=== PATIENT | male | born 1985 | race African-American/Black ===

== ENCOUNTER 2024-04-27 02:44 | Inpatient (IN) | payer SELFPAY ==
[~2024-04-27] VITALS: Ht 167.6 cm; Wt 83.5 kg
[2024-04-27 03:34] LABS: CHLORIDE 105 mEq/L (98-107); POTASSIUM 3.6 mEq/L (3.5-5.1); SODIUM 138 mEq/L (136-145)
[2024-04-27 03:35] LABS: CALCIUM 10.2 mg/dL (8.7-10.4); CARBON DIOXIDE 27 mEq/L (21-32)
[2024-04-27 03:38] LABS: BASOPHILS % 0.5 % (0.0-2.0); DIFFERENTIAL COMMENT 0; EOSINOPHILS % 1.4 % (0.0-5.0); HEMATOCRIT. 50.1 % (42.0-52.0); HEMOGLOBIN. 17.7 g/dL (14.0-18.0); LYMPHOCYTES % 30.3 % (20.0-50.0); MEAN CORPUSCULAR HEMOGLOBIN 33.7 pg (28.0-32.0); MEAN CORPUSCULAR HGB CONC 35.4 g/dL (31.0-37.0); MEAN CORPUSCULAR VOLUME 95.2 fL (80.0-94.0); MEAN PLATELET VOLUME 8.7 fl (7.4-10.4); MONOCYTES % 7.7 % (2.0-8.0); NEUTROPHILS % 60.1 % (40.0-76.0); PLATELET 231 x1000/uL (130-400); RED BLOOD CELL COUNT 5.26 mill/uL (4.7-6.1); RED CELL DISTRIBUTION WIDTH 12.8 % (11.6-14.6); WHITE BLOOD COUNT 13.6 x1000/uL (4.5-11.0)
[2024-04-27 03:40] LABS: CREATININE 1.3 mg/dL (0.6-1.3); GLUCOSE 115 mg/dL (70-105); UREA NITROGEN BLOOD 12 mg/dL (9-23)
[2024-04-27 03:41] LABS: TROPONIN I HIGH SENSITIVITY 41 ng/L (3.0-53)
[2024-04-27] MEDS: SODIUM CHLORIDE 0.9% 1,000 ML IV ONE (03:53)
[2024-04-27 04:51] LABS: PROTHROMBIN TIME 10.9 sec (9.6-11.0)
[2024-04-27 04:53] LABS: ETHANOL BLOOD < 10 mg/dL (<10)
[2024-04-27] MEDS: IOHEXOL-350 100 ML BOTTLE ONE (07:07)
[2024-04-27] MEDS ORDERED: MAGNESIUM/ALUMINUM HYDROXIDE/SIMETHICONE 30ML UDC PO PRN (07:15)
[2024-04-27] MEDS ORDERED: ONDANSETRON HCL 4MG/2ML INJ IV PRN (07:15)
[2024-04-27] MEDS ORDERED: DOCUSATE SODIUM 100MG CAPSULE PO PRN (07:15)
[2024-04-27] MEDS ORDERED: ACETAMINOPHEN 325MG TABLET PO PRN ×2 (07:15)
[2024-04-27] MEDS ORDERED: IPRATROPIUM/ALBUTEROL 0.5-3(2.5)MG/3ML NEB HHN PRN (07:15)
[2024-04-27] MEDS ORDERED: GUAIFENESIN 200MG/10ML SUGAR FREE UDC PO PRN (07:15)
[2024-04-27 07:40] LABS: PHOSPHORUS 3.4 mg/dL (2.5-4.9)
[2024-04-27 17:14] LABS: CREATINE KINASE MB FRACTION 14.4 ng/mL (0.5-3.6)
[2024-04-27] MEDS: CARVEDILOL 3.125 MG TABLET PO NR (17:45)
[2024-04-27] MEDS: ENOXAPARIN 40MG/0.4ML SYR SUBCUT SCH (18:07)
[2024-04-27] MEDS: CARVEDILOL 3.125 MG TABLET PO SCH (22:53)
[2024-04-27 23:13] VITALS: BP 137/95; PULSE 56; RESP 15; TEMP 36.7516
[2024-04-27 23:55] LABS: CREATINE KINASE MB FRACTION 12.1 ng/mL (0.5-3.6)
[2024-04-28] VITALS: BP 129/86; PULSE 49; RESP 17; TEMP 36.83628; O2SAT 96
[2024-04-28 04:00] VITALS: BP 129/88; PULSE 49; RESP 14; TEMP 36.78072; O2SAT 96
[2024-04-28 07:20] LABS: BASOPHILS % 0.7 % (0.0-2.0); EOSINOPHILS % 3.7 % (0.0-5.0); HEMATOCRIT. 51.8 % (42.0-52.0); HEMOGLOBIN. 17.4 g/dL (14.0-18.0); LYMPHOCYTES % 34.8 % (20.0-50.0); MEAN CORPUSCULAR HEMOGLOBIN 32.5 pg (28.0-32.0); MEAN CORPUSCULAR HGB CONC 33.6 g/dL (31.0-37.0); MEAN CORPUSCULAR VOLUME 96.8 fL (80.0-94.0); MEAN PLATELET VOLUME 8.5 fl (7.4-10.4); MONOCYTES % 9.9 % (2.0-8.0); NEUTROPHILS % 50.9 % (40.0-76.0); PLATELET 211 x1000/uL (130-400); RED BLOOD CELL COUNT 5.35 mill/uL (4.7-6.1); RED CELL DISTRIBUTION WIDTH 12.8 % (11.6-14.6); WHITE BLOOD COUNT 8.2 x1000/uL (4.5-11.0)
[2024-04-28 07:43] LABS: CARBON DIOXIDE 27 mEq/L (21-32); CHLORIDE 104 mEq/L (98-107); POTASSIUM 3.7 mEq/L (3.5-5.1); SODIUM 138 mEq/L (136-145)
[2024-04-28 07:44] LABS: CALCIUM 9.6 mg/dL (8.7-10.4)
[2024-04-28 07:46] LABS: CREATINE KINASE MB FRACTION 9.8 ng/mL (0.5-3.6)
[2024-04-28 07:47] LABS: ALBUMIN 4.6 g/dL (3.2-4.8)
[2024-04-28 07:48] LABS: CREATININE 1.2 mg/dL (0.6-1.3)
[2024-04-28 07:49] LABS: GLUCOSE 91 mg/dL (70-105); THYROID STIMULATING HORMONE 0.82 uIU/mL (0.55-4.78); TRIGLYCERIDE 113 mg/dL (0-150); UREA NITROGEN BLOOD 11 mg/dL (9-23)
[2024-04-28 07:50] LABS: LDL CHOLESTEROL 191 mg/dL (5-100); T4 FREE 1.24 ng/dL (0.89-1.76)
[2024-04-28 07:51] LABS: CHOLESTEROL 246 mg/dL (<200); HDL CHOLESTEROL 48 mg/dL (>55)
[2024-04-28 08:00] VITALS: BP 130/86; PULSE 47; RESP 19; TEMP 36.78072; O2SAT 98
[2024-04-28 08:04] LABS: HEPATITIS B SURFACE ANTIGEN NEGATIVE (Negative)
[2024-04-28 08:25] LABS: HEPATITIS C AB NON REACTIVE (Neg) (Negative)
[2024-04-28 09:01] LABS: CLARITY URINE CLEAR (CLEAR); COLOR URINE YELLOW (YELLOW); GLUCOSE URINE NEGATIVE (NEGATIVE); PH URINE 5.5 (4.5-8.0); PROTEIN URINE NEGATIVE (NEGATIVE); SPECIFIC GRAVITY URINE 1.015 (1.005-1.030)
[2024-04-28 09:02] LABS: KETONES URINE TRACE (NEGATIVE); NITRITE URINE NEGATIVE (NEGATIVE); OCCULT BLOOD URINE NEGATIVE (NEGATIVE)
[2024-04-28 09:03] LABS: LEUKOCYTE ESTERASE URINE NEGATIVE (NEGATIVE)
[2024-04-28 09:06] LABS: *AMPHETAMINES SCREEN URINE NEGATIVE (NEGATIVE)
[2024-04-28 09:07] LABS: *BARBITURATES SCREEN URINE NEGATIVE (NEGATIVE); *BENZODIAZEPINES SCREEN URINE NEGATIVE (NEGATIVE); *COCAINE SCREEN URINE NEGATIVE (NEGATIVE)
[2024-04-28] MEDS: ASPIRIN 81MG TABLET PO SCH (09:07)
[2024-04-28 09:08] LABS: CANNABINOID URINE SCREEN NEGATIVE (NEGATIVE); ECSTASY MDMA SCREEN URINE NEGATIVE (NEGATIVE); METHADONE URINE SCREEN NEGATIVE (NEGATIVE); OPIATES URINE SCREEN NEGATIVE (NEGATIVE); PHENCYCLIDINE URINE SCREEN NEGATIVE (NEGATIVE)
[2024-04-28] MEDS: ENOXAPARIN 80MG/0.8ML SYR SUBCUT SCH (09:08)
[2024-04-28] MEDS: PANTOPRAZOLE SODIUM 40 MG/VIAL IV SCH (10:46)
[2024-04-28 12:00] VITALS: BP 121/83; PULSE 57; RESP 11; TEMP 36.72516; O2SAT 97
[2024-04-28 16:00] VITALS: BP 128/95; PULSE 71; RESP 19; TEMP 36.6696; O2SAT 97
[2024-04-28 20:00] VITALS: BP 133/83; PULSE 60; RESP 18; TEMP 36.78072; O2SAT 96
[2024-04-28] MEDS: ATORVASTATIN CALCIUM 40MG TABLET PO SCH (21:10)
[2024-04-28 22:26] LABS: CREATINE KINASE MB FRACTION 4.3 ng/mL (0.5-3.6)
[2024-04-29] VITALS (13 sets, daily range): BP systolic 116–142; BP diastolic 73–104; PULSE 55–88; RESP 8–20; TEMP 36.61404–36.72516; O2SAT 94–99
[2024-04-29 07:30] LABS: CREATINE KINASE MB FRACTION 2.5 ng/mL (0.5-3.6)
[2024-04-29] MEDS ORDERED: IODIXANOL 320MG/ML 100 ML BOTTLE IV ONE (08:03)
[2024-04-29] MEDS ORDERED: HEPARIN 1000 UNITS/ML 10ML ONE (08:03)
[2024-04-29] MEDS ORDERED: DIPHENHYDRAMINE 50MG/ML VIAL ONE (08:03)
[2024-04-29] MEDS ORDERED: VERAPAMIL HCL 2.5 MG/1 ML 2ML VIAL IV ONE (08:03)
[2024-04-29] MEDS ORDERED: LIDOCAINE HCL 1% 10 MG/ML 10ML VIAL ONE (08:03)
[2024-04-29] MEDS ORDERED: FENTANYL CITRATE/PF 50MCG/ML 2ML VIAL ONE (08:46)
[2024-04-29] MEDS ORDERED: MIDAZOLAM HCL 2 MG/2 ML VIAL ONE (08:46)
[2024-04-29] MEDS ORDERED: ACETAMINOPHEN 325MG TABLET PO PRN (10:15)
[2024-04-29] MEDS ORDERED: ATROPINE SULFATE 1MG/10ML SYR IV PRN (10:15)
[2024-04-30] VITALS: BP 127/79; PULSE 60; RESP 15; TEMP 36.9474; O2SAT 95
[2024-04-30 03:15] VITALS: BP 114/72; PULSE 61; RESP 19; TEMP 36.9474; O2SAT 94
[2024-04-30 06:19] LABS: CHLORIDE 105 mEq/L (98-107); POTASSIUM 3.8 mEq/L (3.5-5.1); SODIUM 138 mEq/L (136-145)
[2024-04-30 06:20] LABS: CALCIUM 9.5 mg/dL (8.7-10.4); CARBON DIOXIDE 23 mEq/L (21-32)
[2024-04-30 06:25] LABS: CREATININE 1.3 mg/dL (0.6-1.3); GLUCOSE 75 mg/dL (70-105); UREA NITROGEN BLOOD 11 mg/dL (9-23)
[2024-04-30 06:37] LABS: BASOPHILS % 0.7 % (0.0-2.0); EOSINOPHILS % 2.8 % (0.0-5.0); HEMOGLOBIN. 17.4 g/dL (14.0-18.0); LYMPHOCYTES % 26.8 % (20.0-50.0); MEAN CORPUSCULAR HEMOGLOBIN 32.9 pg (28.0-32.0); MEAN CORPUSCULAR HGB CONC 34.1 g/dL (31.0-37.0); MEAN CORPUSCULAR VOLUME 96.3 fL (80.0-94.0); MEAN PLATELET VOLUME 8.9 fl (7.4-10.4); MONOCYTES % 9.1 % (2.0-8.0); NEUTROPHILS % 60.6 % (40.0-76.0); PLATELET 214 x1000/uL (130-400); RED BLOOD CELL COUNT 5.29 mill/uL (4.7-6.1); RED CELL DISTRIBUTION WIDTH 12.5 % (11.6-14.6); WHITE BLOOD COUNT 10.1 x1000/uL (4.5-11.0)
[2024-04-30 08:00] VITALS: BP 149/104; PULSE 83; RESP 15; TEMP 36.55848; O2SAT 96
[2024-04-30] MEDS: ENOXAPARIN 40MG/0.4ML SYR SUBCUT SCH (11:23)
[2024-04-30 12:00] VITALS: BP 139/98; PULSE 96; RESP 21; TEMP 36.72516; O2SAT 96
[2024-04-30] MEDS: CLONIDINE 0.1MG TABLET PO PRN (12:06)
[2024-04-30] MEDS ORDERED: LIP40 PO (12:08)
[2024-04-30] MEDS ORDERED: COR3 PO (12:08)
[2024-04-30 14:11] VITALS: BP 138/98; PULSE 96; TEMP 98.1; O2SAT 96
== END 2024-04-30 16:00 | disposition home or self-care (01) | DRG 190 ==
LOC: ER 02:44 → 5WST 05:10 → 3WST 23:05
PROVIDERS: ADMIT Internal Medicine; ATTEND Internal Medicine
PROC: 4A023N7 Measurement of Cardiac Sampling and Pressure, Left Heart, Percutaneous Approach (ICD-10-PCS; principal; 2024-04-29)
PROC: B211YZZ Fluoroscopy of Multiple Coronary Arteries using Other Contrast (ICD-10-PCS; 2024-04-29)
DX: I21.4 Non-ST elevation (NSTEMI) myocardial infarction (principal); I50.23 Acute on chronic systolic (congestive) heart failure; I25.10 Atherosclerotic heart disease of native coronary artery without angina pectoris; I11.0 Hypertensive heart disease with heart failure; E78.5 Hyperlipidemia, unspecified; I16.0 Hypertensive urgency; Z79.899 Other long term (current) drug therapy
CPT/HCPCS: 36415; 71045; 71275; 74174; 80048; 80061; 80305; 80320; 81003; 82040; 82550; 82553; 83735; 84100; 84439; 84443; 84484; 85025; 85379; 86705; 86850; 86900; 87340; 93005; 93306; 93458; 97165; 99285; C1769; C1887; J1200; J1644; J1650; J2250; J2470; J3010; J3490; J7030; Q9967; G0480